=== PATIENT | male | born 2005 | race Caucasian/White ===

== ENCOUNTER 2023-10-26 12:59 | Emergency (ER) | payer SELFPAY ==
[2023-10-26 13:03] VITALS: BP 144/80
--- NOTE | 2023-10-26 15:04 | ED.GENMED ---
History of Present Illness
<Heidi Bay PA-C - Last Filed: 10/26/23 20:00>
General
Chief Complaint: Abdominal Pain
Source: patient
Exam Limitations: none
Time Seen by Provider: 10/26/23 14:57
Nursing documentation reviewed up to this point in time: agreed with
Travel History
Have you had any contact with someone who has COVID-19?: No
Do you have any symptoms of coronavirus? Fever > 100 degrees, chills, cough, shortness of breath, sore throat, loss of taste or smell, muscle aches, or headache?: No
History of Present Illness
History of Present Illness:
18-year-old male with no past medical history presenting to emergency department today with diffuse abdominal pain for the past 6 weeks. Patient has had 2 other episodes of this in the past. Patient states that the pain worsens after eating.
Patient denies any NSAID use, recent travel, alcohol use. Patient has nausea associated with this, no vomiting. Patient denies any past history of abdominal surgeries. Patient does have a family history of celiac disease and small bowel
obstructions, but no family history of any UC or Crohn's. Patient has never seen a GI doctor or primary doctor for this issue. Patient denies chest pain, shortness of breath, back pain. Patient denies any hematemesis, melena. Patient states that
he had a few episodes of diarrhea a few days ago, but has been constipated as of recently. Patient also complains of urinary retention. Patient states that the past week, when he has been using the bathroom, he states that he cannot get all of the
urine out. Patient has no pain associated with this, no dysuria, no hematuria.
Review of Systems
<Heidi Bay PA-C - Last Filed: 10/26/23 20:00>
Review of Systems
All Other Systems: ROS reviewed and negative except as documented in HPI and ROS
Constitutional: Reports no symptoms
EENT: Reports no symptoms
Respiratory: Reports no symptoms
Cardiac: Reports no symptoms
Musculoskeletal: Reports no symptoms
Skin: Reports no symptoms
Neurological: Reports no symptoms
Endocrine: Reports no symptoms
Hematologic/Lymphatic: Reports no symptoms
Psychiatric: Reports no symptoms
Phy Exam
<Heidi Bay PA-C - Last Filed: 10/26/23 20:00>
Physical Exam
Physical Exam:
Vitals: Vital signs are stable
General: Patient is well-appearing no acute distress
Skin: Warm and dry, no rashes or lesions
Head: Normocephalic, atraumatic
Cardiac: Regular rate and rhythm, no murmurs
Pulm: Normal respiratory effort, no wheezes, rales, rhonchi
Abdomen: Abdomen is soft, nontender to palpation. No palpable masses, no organomegaly.
Neuro: AAOx3. CN II-XII intact.
Course
<Heidi Bay PA-C - Last Filed: 10/26/23 20:00>
Orders/Labs/Results
Orders:
Orders
10/26/23 15:35
Iohexol [Omnipaque] See Protocol PO NOW STA
10/26/23 15:36
CT Abd/pel W Iv And Oral Contr Urgent
Comment:
Reason For Exam: diffuse abdominal pain
10/26/23 15:48
Complete Blood Count/With Diff Urgent
Comprehensive Metabolic Panel Urgent
Lipase Urgent
Urinalysis Reflex To Culture Urgent
Date Specimen was Collected: 10/26/23
Time Specimen was Collected: 15:33
Urine Microscopic Reflex Cult Urgent
10/26/23 16:03
Ondansetron Injectable [Zofran] 4 mg .ROUTE .STK-MED ONE
10/26/23 16:08
Ondansetron Injectable [Zofran] 4 mg IV NOW STA
Abnormal Lab Results
10/26/23
15:48
Absolute Neuts (auto) 6.7 H 10^3/uL
(1.4-6.5)
Absolute Monos (auto) 0.7 H 10^3/uL
(0.1-0.6)
Lymphocytes % 15.8 L %
(20.5-51.1)
Urine Ketones 3+ A
(Negative)
Urine Bilirubin 1+ A
(Negative)
Leukocyte Esterase Rfl Trace A
(Negative)
10/26/23 15:48
10/26/23 15:48
Vital Signs
Initial and Last Documented VS:
Initial Vital Signs
Temp Pulse Resp BP Pulse Ox
98.4 F 79 20 144/80 96
10/26/23 13:03 10/26/23 13:03 10/26/23 13:03 10/26/23 13:03 10/26/23 13:03
Last Documented Vital Signs
Temp Pulse Resp BP Pulse Ox
98.4 F 79 20 144/80 96
10/26/23 13:03 10/26/23 13:03 10/26/23 13:03 10/26/23 13:03 10/26/23 13:03
<Ahmet Spears MD - Last Filed: 10/26/23 15:50>
Orders/Labs/Results
Orders:
Orders
10/26/23 15:35
Iohexol [Omnipaque] See Protocol PO NOW STA
10/26/23 15:36
CT Abd/pel W Iv And Oral Contr Urgent
Comment:
Reason For Exam: diffuse abdominal pain
10/26/23 15:48
Complete Blood Count/With Diff Urgent
Comprehensive Metabolic Panel Urgent
Lipase Urgent
Urinalysis Reflex To Culture Urgent
Date Specimen was Collected: 10/26/23
Time Specimen was Collected: 15:33
Urine Microscopic Reflex Cult Urgent
03/26/24 16:03
Ondansetron Injectable [Zofran] 4 mg .ROUTE .STK-MED ONE
10/26/23 16:08
Ondansetron Injectable [Zofran] 4 mg IV NOW STA
Abnormal Lab Results
10/26/23
15:48
Absolute Neuts (auto) 6.7 H 10^3/uL
(1.4-6.5)
Absolute Monos (auto) 0.7 H 10^3/uL
(0.1-0.6)
Lymphocytes % 15.8 L %
(20.5-51.1)
Urine Ketones 3+ A
(Negative)
Urine Bilirubin 1+ A
(Negative)
Leukocyte Esterase Rfl Trace A
(Negative)
10/26/23 15:48
10/26/23 15:48
Vital Signs
Initial and Last Documented VS:
Initial Vital Signs
Temp Pulse Resp BP Pulse Ox
98.4 F 79 20 144/80 96
10/26/23 13:03 10/26/23 13:03 10/26/23 13:03 10/26/23 13:03 10/26/23 13:03
Last Documented Vital Signs
Temp Pulse Resp BP Pulse Ox
98.4 F 79 20 144/80 96
10/26/23 13:03 10/26/23 13:03 10/26/23 13:03 10/26/23 13:03 10/26/23 13:03
<Heidi Bay PA-C - Last Filed: 10/26/23 20:00>
MDM/Problems Addressed
Differential Diagnosis Includes:
Differentials include duodenitis, gastritis, Crohn's disease, ulcerative colitis, pyelonephritis, appendicitis
MDM/Problems Addressed:
Abdominal pain
Chronic conditions affecting care:
n/a
Acute Exacerbation and/or Progression of Chronic Illness:
n/a
<Heidi Bay PA-C - Last Filed: 10/26/23 20:00>
*Pulse Oximetry
Patient hypoxic: no
*Critical Care Note
Total Time (30-74mins, 75-104mins- exclusive of procedures): Not Applicable
Data Reviewed
Review of Other/Old Records Reveals: Records (No previous records in [facility] to review.) and Discharge Summary (No discharge summary to review.)
Source: patient
<Heidi Bay PA-C - Last Filed: 10/26/23 20:00>
Patient Management
Escalation/DeEscalation of care consider admission/obs:
18-year-old male with no past medical history presenting to emergency department today with diffuse abdominal pain for the past 6 weeks. Patient has associated nausea with this but no vomiting. On exam, patient's abdomen soft, nontender. CT scan
revealed thickening of the terminal ileum with associated lymphadenitis. Also some diffuse mild bowel wall thickening throughout. Concerning for Crohn's versus UC. Discussed findings with patient and family, discussed importance of GI follow-up
for colonoscopy. Patient family aware of plan. I have sent patient's information to GI front office assistant. Patient also given number for gastroenterology office. Patient medically stable for discharge.
ED Attending Note
<Heidi Bay PA-C - Last Filed: 10/26/23 20:00>
-
Portions of this chart may have been created with voice recognition software.� Occasional wrong word or��sound alike� substitutions may have occurred due to the inherent limitations of voice recognition software.
<Ahmet Spears MD - Last Filed: 10/26/23 15:50>
ED Attending Note
Patient seen and examined by attending physician: Yes
I performed the substantive portion of visit, reviewed & personally made and approve the management plan that is documented in note by myself or ABY.: Yes
ED Attending Note:
18-year-old male 6 weeks of intermittent abdominal pain. Initially had some vomiting with it. No diarrhea. No fever. No back pain. Symptoms wax and wane. May be a slight eating component. Describing the location is very vague and generalized.
On exam patient is nontoxic in no distress. Lungs are clear and equal. Heart regular rate and rhythm no murmur. Abdomen soft no real focal tenderness rebound or guarding. Warm and dry. Perfusing well.
Vague nonlocalizing intermittent abdominal pain. Clinically nonsurgical. However with the ongoing nature of the symptoms workup is recommended. Labs and CT scan. If all negative stable for discharge to follow-up with primary care and GI
Discharge Plan
Departure
Patient Disposition: Home (Routine Discharge)
Date of Disposition: 10/26/23
Time of Disposition: 19:39
Patient with high blood pressure during this ER visit?: Yes
Condition: Good
Discharge Problem:
Abdominal pain
Instructions: Colitis (DC), Abdominal Pain, Adult ED, Abdominal Pain
Referrals:
Ethan Burgess MD [Active] - Call in 1-3 days for appt
Melissa Vargas MD [Active] - Call in 1-3 days for appt
NONE,* [Family Provider] -
Activity Restrictions/Additional Instructions:
I sent your information to the fast food crew member's office. They should give you a call within the next few days to schedule appointment, however if you not hear from them, I recommend calling the office with a number we attached referral section.
Please return to the emergency department should you experience intractable vomiting, acute worsening of your pain, shortness of breath, chest pain, or other concerning signs or symptoms.
Your urinalysis did not show evidence of a urinary tract infection. I recommend following up with your primary care provider on these urinary symptoms.
Interventions
Interventions:
*Risk Screen - Suicide Last Done: 10/26/23 18:04
*General Assessment Last Done: 10/26/23 15:25
*Neglect/Abuse Screening Last Done: 10/26/23 17:20
ED- Fall Risk Assessment Last Done: 10/26/23 15:25
*ED COVID-19 Vaccine History Last Done: 10/26/23 15:52
GZ-Fkhhcn-Wjttwnfqnb Assessment Last Done: 10/26/23 15:25
[2023-10-26 15:51] VITALS: BMI 32.6
[2023-10-26] MEDS: OMNIPAQUE 50 ML PO (15:52)
[2023-10-26] MEDS: ZOFRAN 4 MG IV (16:08)
[2023-10-26 16:10] LABS: % Basophils 0.3 % (0-2); % Eosinophils 0.6 % (0-6); % Immature Granulocytes 0.4 % (0-0.5); % Lymphocytes 15.8 % (20.5-51.1); % Monocytes 7.7 % (1.7-9.3); % Neutrophils 75.2 % (42.2-75.2); Absolute Eosinophils 0.1 10^3/uL (0-0.7); Absolute Lymphocytes 1.4 10^3/uL (1.2-3.4); Absolute Monocytes 0.7 10^3/uL (0.1-0.6); Absolute Neutrophils 6.7 10^3/uL (1.4-6.5); Hematocrit 45.9 % (39.0-52.0); Hemoglobin 16.1 g/dL (13.0-18.0); Mean Corp Hgb Conc. 35.1 g/dL (33.0-37.0); Mean Corpuscular Hgb 29.8 pg (27.0-31.0); Mean Platelet Volume 9.8 fL (7.4-10.4); Nucleated Red Blood Cells % 0 % (-); Platelet Count 238 10^3/uL (130-400); Red Cell Dist. Width 12.8 % (11.5-14.5); White Blood Cell Count 8.9 10^3/uL (4.8-10.8)
[2023-10-26 16:22] LABS: ALT (SGPT) 21 U/L (0-50); AST (SGOT) 24 U/L (17-59); Albumin 4.8 g/dl (3.5-5.0); Alkaline Phosphatase 106 U/L (38-126); Blood Urea Nitrogen 9 mg/dl (9-20); Carbon Dioxide 25 mmol/L (22-30); Chloride 100 mmol/L (98-107); Estimated Creatinine Clearance > 125 ml/min; Glucose 89 mg/dl (70-99); Potassium 3.7 mmol/L (3.5-5.1); Sodium 136 mmol/L (135-145); Total Bilirubin 1.1 mg/dl (0.2-1.3); Total Protein 7.4 g/dl (6.3-8.2); eGFR > 60.00
[2023-10-26 16:23] LABS: Lipase 48 U/L (23-300)
[2023-10-26 17:31] LABS: Urine Albumin Trace (Neg - Trace); Urine Bilirubin 1+ (Negative); Urine Character Clear (Clear); Urine Color Yellow; Urine Glucose Negative (Negative); Urine Ketone 3+ (Negative); Urine Leukocyte Trace (Negative); Urine Nitrite Negative (Negative); Urine Occult Blood Negative (Negative); Urine Urobilinogen 1+ (Neg - 1+)
[2023-10-26 17:47] LABS: Urine Mucus Moderate
[2023-10-26 17:48] LABS: Urine Red Blood Cell 0-2 /HPF (0-2); Urine Squamous Cell 0-2 /LPF (Few); Urine White Cell 0-2 /HPF (0-5)
[2023-10-26 19:55] VITALS: BP 136/70
== END 2023-10-26 19:59 | disposition home or self-care (01) ==
LOC: EMR 12:59
PROVIDERS: Physician Assistant; EMERGENCY PHYSICIAN Emergency Medicine
DX: R10.9 Unspecified abdominal pain (principal); R03.0 Elevated blood-pressure reading, without diagnosis of hypertension
CPT/HCPCS: 99285; 96374; 74177; 80053; 81003; 81015; 83690; 85025; Q9967